=== PATIENT | male | born 1945 | race Caucasian/White ===

== ENCOUNTER 2019-12-23 14:24 | Emergency (ER) | payer MEDICARE, OTHER ==
[~2019-12-23] VITALS: Ht 177.8 cm; Wt 97.5 kg
== END 2019-12-23 16:30 | disposition home or self-care (01) ==
LOC: ED 14:24
DX: M25.552 Pain in left hip (principal); I10 Essential (primary) hypertension; Z88.8 Allergy status to other drugs, medicaments and biological substances; Z88.5 Allergy status to narcotic agent
CPT/HCPCS: 73502; 99283-25

== ENCOUNTER 2020-12-22 11:43 | Inpatient (IN) | payer MEDICARE ==
[~2020-12-22] VITALS: Ht 177.8 cm; Wt 91.5 kg
--- OUTSIDE RECORDS SUMMARY | 2020-12-22 11:46 | XMS ---
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 [place] - 2 Visits in 30 Days CARE PROVIDERS Rita Purcell Nurse Practitioner: Family Current PHONE: [phone] Titi has no Care Guidelines for this patient. Kavon VISIT COUNT (12 MO.) 1 Alphonso Chavez Stevan [address] [place] [address] TOTAL 3 NOTE: Visits indicate total known visits. ED/UCC VISIT TRACKING (12 MO.) 12/22/2020 11:43 [facility] [place] TYPE: Emergency COMPLAINT: - COVID +, WEAKNESS 12/14/2020 11:59 [facility] [place] TYPE: Emergency DIAGNOSES: - Cough - COVID-19 - Covid-like symptoms spc 2 12/23/2019 14:[address] [facility] [place] TYPE: Emergency COMPLAINT: - HIP PAIN/ INJURY DIAGNOSES: - Allergy status to other drugs, medicaments and biological substances - Allergy status to narcotic agent - Pain in left hip - Allergy status to other drugs, medicaments and biological substances - Essential (primary) hypertension - Allergy status to narcotic agent INPATIENT VISIT TRACKING (12 MO.) No inpatient visits to display in this time frame [id number]
[2020-12-22] MEDS ORDERED: BENZONATATE100 MG PO (13:48)
[2020-12-22] MEDS ORDERED: AMLODIPINE BESY10 MG PO (13:49)
[2020-12-22] MEDS ORDERED: ALLOPURINOL100 MG PO (13:49)
[2020-12-22] MEDS ORDERED: ATORVASTATIN CA40 MG PO (13:49)
[2020-12-22] MEDS ORDERED: LOSARTAN-HCTZ1 EAC1 PO (15:29)
[2020-12-22] MEDS ORDERED: PANTOPRAZOLE SO40 MG PO (15:30)
[2020-12-22] MEDS ORDERED: SILDENAFIL CIT100 MG PO (15:31)
--- NOTE | 2020-12-22 15:48 | NUR ---
dinner order taken, patient states would like to take a nap. tele connected.
--- NOTE | 2020-12-22 16:46 | NUR ---
DR Lu just finished seeing patient. O2 on via NC at 2L saturations 94%. was on room air and sats 90%.
--- NOTE | 2020-12-22 17:32 | NUR ---
instructed patient on correct use of IS. patient demonstrated using 2x, up to 1300 anna. he coughed after each use. eating dinner now.
--- NOTE | 2020-12-22 18:27 | NUR ---
laying on right side sleeping. no apparent distress.
--- NOTE | 2020-12-22 19:20 | NUR ---
REPORT RECEIVED FROM OFFGOING RNMODESTA. PT RESTING IN BED WITH EYES CLOSED.
--- NOTE | 2020-12-22 19:48 | EKG ---
[facility] [address] [facility] [place] [address] Signed Atrial fibrillation with rapid ventricular response with premature ventricular or aberrantly conducted complexes Left axis deviation Possible Inferior infarct , age undetermined Abnormal ECG No previous ECGs available Confirmed by ALYSHA CARTAGENA DO ([id number]) on 12/22/2020 7:48:02 PM Electronically Signed By: ALYSHA CARTAGENA DO 12/22/201947 PATIENT NAME: KASSIDY HUDDLESTON Electrocardiogram DATE OF : 43 PHYSICIAN: ALYSHA CARTAGENA DO REPORT #: [id number] REPORT IS CONFIDENTIAL AND NOT TO BE RELEASED WITHOUT AUTHORIZATION
--- NOTE | 2020-12-22 21:40 | NUR ---
PT ASSESSMENT COMPLETE. PT RESTING IN BED WITH EYES CLOSED. WAKES EASILY. PT DENIES PAIN, NAUSEA, OR SOB. PT REMAINS VERY DROWSY THROUGHOUT ASSESSMENT. ANSWERS QUESTIONS APPROPRIATELY AND THEN QUICKLY FALLS BACK TO SLEEP. O2 IN PLACE AT 2LPM VIA NC. SAO2 92%. DRY COUGH NOTED DURING ASSESSMENT. IVF INFUSING ORDERED, IV FLUSHED, WNL, PATENT. TELE # [address] URINAL EMPTIED AND ICE WATER REFILLED. PT DENIES FURTHER NEEDS AT THIS TIME. CALL LIGHT IN REACH.
--- NOTE | 2020-12-23 00:15 | NUR ---
PT ROUNDING, PT FOUND SITTING UP AT EDGE OF BED WITH IV PULLED AND BLOOD COVERING BEDDING AND URINAL. PT AGREES HE WOKE UP CONFUSED. PT DISORIENTED TO DATE BUT OTHERWISE ORIENTED. IV DC'D WITHIN NORMAL LIMITS. NEW IV PLACED BY BIT TAPPER, PT TOLERATED WELL. PT DENIES FURTHER NEEDS AT THIS TIME. CALL LIGHT IN REACH.
--- NOTE | 2020-12-23 02:30 | NUR ---
PT ASSESSMENT COMPLETE. PT RESTING IN BED WITH EYES CLOSED. 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 REMAINS DROWSY THROUGHOUT THE ASSESSMENT. SA02 96% ON 2LPM. PT TITRATED TO ROOMAIR DURING ASSESSMENT. SA02 92% ON RA LUNG SOUNDS CLEAR THROUGHOUT. NO COUGH NOTED DURING ASSESSMENT. TELE # [address] HR 70'S. IV SL. PT DENIES FURTHER NEEDS AT THIS TIME. CALL LIGHT IN REACH.
--- NOTE | 2020-12-23 08:30 | NUR ---
Tessalon Perles 100mg po admin for cough.
--- NOTE | 2020-12-23 13:31 | NUR ---
Patient sitting up in chair eating lunch. Patient remains on room air, respiraitons even and non labored. Oxygen saturation is 92% at this time. Patient has no distress or needs. Personal supllies and call light within reach.
--- NOTE | 2020-12-23 15:21 | NUR ---
updated regarding plan of care.
--- NOTE | 2020-12-23 17:45 | NUR ---
CHECKED SEVERAL TIMES TO CALL PATIENT. WAS UNABLE TO CONNECT DUE TO STAFF WORKING WITH OR PATIENT SLEEPING. WILL FOLLOW UP TOMORROW.
--- NOTE | 2020-12-23 18:16 | NUR ---
Tylenol 650mg po and tessalone perles 100mg po admin for cough and rib pain.
--- NOTE | 2020-12-23 18:29 | NUR ---
Increased patient's oxygen to 9L per nc due to sp02 of 86% on 6L. Sp02 increased to 90-92% on 9L oxygen per nc. Transitioned patient to left lateral side at this time. Patient reports he is "too large" in his tummy area to lay on his belly. Personal supplies and call light within reach.
--- NOTE | 2020-12-23 20:50 | NUR ---
PT ASSESSMENT COMPLETE. PT RESTING IN BED WITH EYES CLOSED. WAKES EASILY. DENIES PAIN, NAUSEA, OR SOB. LUNG SOUNDS CLEAR THROUGHOUT. PT TOLERATING RA, SA02 90'S. TELE # [address] AFIB. HR 70-80. IV SL. FLUSHED, WNL. ICE WATER REFILLED. PT DENIES FURTHER NEEDS AT THIS TIME. CALL LIGHT IN REACH.
--- NOTE | 2020-12-23 22:30 | NUR ---
PT UP TO BATHROOM AND BACK TO BED. URINATED IN TOILET RATHER THAN URINAL. EDUCATION REGARDING I&O PROVIDED. PT STATES UNDERSTANDING. DENIES FURTHER NEEDS AT THIS TIME. CALL LIGHT IN REACH.
--- NOTE | 2020-12-24 02:15 | NUR ---
PT ROUNDING. PT RESTING IN BED WITH EYES CLOSED. LYING ON HIS SIDE. RESPIRATIONS EVEN AND UNLABORED. PT APPEARS TO BE SLEEPING. CALL LIGHT IN REACH.
--- NOTE | 2020-12-24 05:34 | NUR ---
PT ASSESSMENT COMPLETE. PT RESTING IN BED WITH EYES CLOSED. WAKES EASILY TO TOUCH. PT DENIES PAIN, NAUSEA, OR SOB. LUNG SOUNDS CLEAR THROUHGOUT. TOLERATING RA, SA02 95%. OCCASIONAL DRY COUGH NOTED DURING ASSESSMENT. TELE IN PLACE, HR 70'S, AFIB. IV SL. URINAL EMPTIED. ICE WATER REFILLED. PT DENIES FURTHER NEEDS AT THIS TIME. CALL LIGHT IN REACH.
--- NOTE | 2020-12-24 10:17 | NUR ---
PATIENT UP TO BATHROOM AND BACK TO BED, IND. PATIENT USED BATHWIPES TO CLEAN HIMSLEF. SHOWER CAP USED. NEW GOWN AND SOCKS PROVIDED. ORAL CARE SUPPLIES AT SINK. VITALS AND I&O'S CHARTED. CALL LIGHT IN REACH. FRESH WATER GIVEN. NO FURTHER NEEDS AT THIS TIME.
[2020-12-24] MEDS ORDERED: DEXAMETHASONE6 MG PO (11:16)
--- NOTE | 2020-12-24 11:26 | NUR ---
Patient laying on right lateral side, respirations even and non labored. Patient remains on room air, spo2 94% at this time. Patient has no distress. Personal supplies and call light within reach.
== END 2020-12-24 14:15 | disposition home or self-care (01) | DRG 177 ==
LOC: ED 11:43 → MS 14:24
PROVIDERS: ADMIT Student in an Organized Health Care Education/Training Program; ATTEND Student in an Organized Health Care Education/Training Program
PROC: 3E0333Z Introduction of Anti-inflammatory into Peripheral Vein, Percutaneous Approach (ICD-10-PCS; principal; 2020-12-22)
PROC: XW033E5 Introduction of Remdesivir Anti-infective into Peripheral Vein, Percutaneous Approach, New Technology Group 5 (ICD-10-PCS; 2020-12-22)
DX: U07.1 COVID-19 (principal); J96.01 Acute respiratory failure with hypoxia; J12.82 Pneumonia due to coronavirus disease 2019; K75.2 Nonspecific reactive hepatitis; E78.5 Hyperlipidemia, unspecified; E87.6 Hypokalemia; K21.9 Gastro-esophageal reflux disease without esophagitis; I10 Essential (primary) hypertension; Z88.5 Allergy status to narcotic agent; Z88.6 Allergy status to analgesic agent
CPT/HCPCS: 71045; 80053; 81001; 83735; 85025; 93005; 93010; 94760; 96374; 96375; 97110; 97116; 97161; 97165; 99285-25; A9270; J1100; J1650; J7050; J7121

== ENCOUNTER 2021-01-17 20:31 | Emergency (ER) | payer MEDICARE ==
[~2021-01-17] VITALS: Ht 177.8 cm; Wt 95.2 kg
[~2021-01-17 20:31] MED LIST: ALLOPURINOL100 MG PO; AMLODIPINE BESY10 MG PO; ATORVASTATIN CA40 MG PO; BENZONATATE100 MG PO; DEXAMETHASONE6 MG PO; LOSARTAN-HCTZ1 EAC1 PO; PANTOPRAZOLE SO40 MG PO; PREDNISONE20 MG PO; SILDENAFIL CIT100 MG PO
--- OUTSIDE RECORDS SUMMARY | 2021-01-17 20:38 | XMS ---
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 Kavon VISIT COUNT (12 MO.) 1 Alphonso Dominguez [address] [place] [address] TOTAL 4 NOTE: Visits indicate total known visits. ED/C VISIT TRACKING (12 MO.) 01/17/2021 20:31 [facility] TYPE: Emergency COMPLAINT: - SHORTNESS OF BREATH 01/05/2021 22:07 [facility] [place] TYPE: Emergency COMPLAINT: - COUGH,FEVER,SOB 12/22/2020 11:[address] [facility]: Emergency COMPLAINT: - COVID +, WEAKNESS 12/14/2020 11:59 [facility] TYPE: Emergency DIAGNOSES: - Cough - COVID-19 - Covid-like symptoms spc 2 INPATIENT VISIT TRACKING (12 MO.) 01/05/2021 22:08 [facility] TYPE: Observation COMPLAINT: - COVID PNEUMONIA DIAGNOSES: - Hypoxemia - Gastro-esophageal reflux disease without esophagitis - Allergy status to narcotic agent - Essential (primary) hypertension - Hyperlipidemia, unspecified 12/22/2020 14:24 [facility] [place] TYPE: Medical Surgical COMPLAINT: - COVID PNEUMONIA HYPOXIA DIAGNOSES: - COVID-19 - Nonspecific reactive hepatitis - Gastro-esophageal reflux disease without esophagitis - Allergy status to narcotic agent - Acute respiratory failure with hypoxia - Hyperlipidemia, unspecified - Allergy status to analgesic agent - Hypokalemia - Acute respiratory failure with hypoxia - Hypokalemia - Allergy status to narcotic agent - Hyperlipidemia, unspecified - Gastro-esophageal reflux disease without esophagitis - Nonspecific reactive hepatitis - Allergy status to analgesic agent - Essential (primary) hypertension - Essential (primary) hypertension [id number]
[2021-01-17] MEDS ORDERED: CARDIZEM CD120 MG PO (22:31)
--- NOTE | 2021-01-20 13:39 | EKG ---
[facility] [address] [facility] [place] [address] Signed Atrial fibrillation with rapid ventricular response Left axis deviation Inferior infarct (cited on or before 22-DEC-2020) Cannot rule out Anterior infarct (cited on or before 22-DEC-2020) Abnormal ECG When compared with ECG of 05-JAN-2021 22:15, No significant change was found Confirmed by DORYS HU MD ([id number]) on 01/20/2021 1:39:32 PM Electronically Signed By: DORYS HU MD 01/20/21 1339 PATIENT NAME: KASSIDY HUDDLESTON Electrocardiogram DATE OF : 43 PHYSICIAN: DORYS HU MD REPORT #: [id number] REPORT IS CONFIDENTIAL AND NOT TO BE RELEASED WITHOUT AUTHORIZATION
== END 2021-01-17 22:41 | disposition home or self-care (01) ==
LOC: ED 20:31
DX: I48.91 Unspecified atrial fibrillation (principal); I10 Essential (primary) hypertension; Z88.5 Allergy status to narcotic agent; Z79.899 Other long term (current) drug therapy
CPT/HCPCS: 71045; 80053; 83735; 83880; 84484; 85025; 93005; 93010; 99285-25

== ENCOUNTER 2021-06-26 20:28 | Emergency (ER) | payer MEDICARE, OTHER ==
[~2021-06-26] VITALS: Ht 177.8 cm; Wt 94.7 kg
[~2021-06-26 20:28] MED LIST changes: +CARDIZEM CD120 MG PO
[2021-06-26] MEDS ORDERED: LOSARTAN-HCTZ1 EAC1 PO (20:44)
[2021-06-26] MEDS ORDERED: ELIQUIS5 MG PO (20:44)
--- NOTE | 2021-06-27 13:16 | EKG ---
[facility] [address] [facility] [place] [address] Signed Atrial fibrillation with premature ventricular or aberrantly conducted complexes Left axis deviation Inferior infarct (cited on or before 22-DEC-2020) Abnormal ECG When compared with ECG of 17-JAN-2021 20:44, Vent. rate has decreased BY 42 BPM Confirmed by DORYS HU MD ([id number]) on 06/27/2021 1:16:03 PM Electronically Signed By: DORYS HU MD 06/27/21 1316 PATIENT NAME: KASSIDY HUDDLESTON Electrocardiogram DATE OF : 43 PHYSICIAN: DORYS HU MD REPORT #: [id number] REPORT IS CONFIDENTIAL AND NOT TO BE RELEASED WITHOUT AUTHORIZATION
== END 2021-06-26 22:42 | disposition home or self-care (01) ==
LOC: ED 20:28
DX: G45.9 Transient cerebral ischemic attack, unspecified (principal); I10 Essential (primary) hypertension; Z20.822 Contact with and (suspected) exposure to COVID-19; I48.91 Unspecified atrial fibrillation; Z86.16 Personal history of COVID-19; Z88.5 Allergy status to narcotic agent; Z79.899 Other long term (current) drug therapy; Z79.01 Long term (current) use of anticoagulants
CPT/HCPCS: 36415; 70450; 70496; 70498; 80053; 81001; 84484; 85025; 85610; 93005; 93010; 99284-25; C9803; Q9967; U0003